=== PATIENT | female | born 1960 | race African-American/Black ===

== ENCOUNTER 2016-08-22 11:22 | Day surgery (SDC) | payer MEDICARE, OTHER ==
[~2016-08-22 11:22] MED LIST: Buffered Lidocaine 1% SYR 3ML* 3 ML/SYR SYRINGE INTRADERM ONE; Cyclopentolate 1% OPTH.SOL* 2 ML BTL ONE; Flurbiprofen 0.03% OPTH.SOL* 2.5 ML BTL ONE; Lidocaine 1% MPF* 2 ML VIAL ONE; Neomycin/Polymy/Dex OPHTH.OIN* 3.5 GM ONE; Phenylephrine 2.5% OPTH.SOL* 2 ML BTL ONE; Tetracaine 0.5% OPTH.SOL 4 ML* 1 DROP BTL ONE; Tropicamide 1% OPTH.SOL* BTL ONE
[2016-08-22] MEDS ORDERED: Propofol* 10 MG/ML 20 ML BTL IV PUSH ONE (13:22)
[2016-08-22] MEDS ORDERED: Lidocaine 2% PF * 5 ML VIAL ONE (13:22)
[2016-08-22 14:17] VITALS: BP 159/77
--- NOTE | 2016-08-23 03:49 | OP ---
DATE OF OPERATION: 08/22/16 [facility]MER[facility] DATE OF : 56 SURGEON: Dr. Walker Anthony. PROBLEM MANAGER: None. ANESTHESIOLOGIST: Bahman Pratt DO ANESTHESIA: Topical with intravenous sedation. PRE-OP DIAGNOSIS: Cataract, left eye. POST-OP DIAGNOSIS: Cataract, left eye. OPERATIVE PROCEDURE: Phacoemulsification and cataract extraction with posterior chamber intraocular lens implant, left eye. COMPLICATIONS: None. BLOOD LOSS: None. DESCRIPTION OF PROCEDURE: The patient was brought to the operating room and received a small amount of intravenous sedation. A drop of Tetracaine was placed in her left eye. She was prepped and draped in the usual sterile fashion for ophthalmic surgery and attention was directed to the left eye where a speculum was placed. A paracentesis was created at the 5 o'clock position and 0.1 cc of 1 percent preservative-free Lidocaine was injected into the anterior chamber followed by DisCoVisc. The eye was digitally stabilized while a 2.75 mm keratome was used to create a triplanar clear corneal incision at the 3 o'clock position. A continuous curvilinear capsulorrhexis was created with a cystotome and Utrata forceps. BSS on a cannula was used to hydrodissect the lens from the capsule. Phacoemulsification was performed in a divide-and- conquer technique to create four fragments which were removed. Residual cortical material was removed with irrigation and aspiration. DisCoVisc was used to inflate the capsular bag and an SN60AT 26.0 diopter lens was folded and inserted into the capsular bag. DisCoVisc was removed using irrigation and aspiration. BSS on a cannula was used to hydrate the corneal stroma and seal the wound. At the end of the case the pupil was round and the lens was centered. The eye was of normal pressure and the wound was water tight. The speculum was removed and topical Maxitrol ointment was placed on the surface of the eye. The eye was closed, patched and shielded and the patient was sent to the recovery room in stable condition with post operative instructions and follow-up appointment given. [id number]/CPS #: [id number] MTDD
== END 2016-08-22 14:23 | disposition home or self-care (01) ==
LOC: OREAST 11:22
PROVIDERS: ATTEND Ophthalmology
DX: H25.12 Age-related nuclear cataract, left eye (principal); F17.210 Nicotine dependence, cigarettes, uncomplicated; E03.9 Hypothyroidism, unspecified
CPT/HCPCS: A9270-GY; J2704; V2632

== ENCOUNTER 2017-01-16 06:44 | Day surgery (SDC) | payer MEDICARE, OTHER ==
[~2017-01-16 06:44] MED LIST changes: +Acetaminophen TAB* 325 MG PO PRN; +Buffered Lidocaine 0.9% SYRIN* 5 ML/SYR SYRINGE INTRADERM ONE; -Buffered Lidocaine 1% SYR 3ML* 3 ML/SYR SYRINGE INTRADERM ONE; -Cyclopentolate 1% OPTH.SOL* 2 ML BTL ONE; -Flurbiprofen 0.03% OPTH.SOL* 2.5 ML BTL ONE; -Lidocaine 1% MPF* 2 ML VIAL ONE; -Neomycin/Polymy/Dex OPHTH.OIN* 3.5 GM ONE; -Phenylephrine 2.5% OPTH.SOL* 2 ML BTL ONE; -Tetracaine 0.5% OPTH.SOL 4 ML* 1 DROP BTL ONE; -Tropicamide 1% OPTH.SOL* BTL ONE
[2017-01-16] MEDS ORDERED: fentaNYL* 50 MCG/ML 2 ML VIAL (100 MCG VIAL) ONE (07:42)
[2017-01-16] MEDS ORDERED: Midazolam* 1 MG/ML 2 ML VIAL (2 MG) ONE ×2 (07:42→07:54)
[2017-01-16 08:18] VITALS: BP 109/64
--- NOTE | 2017-01-16 17:10 | OP ---
DATE OF OPERATION: 01/16/17 [facility] DATE OF : 56 SURGEON: Dr. Walker Anthony. STEEL GRINDER: None. ANESTHESIA: Topical with intravenous sedation. PRE-OP DIAGNOSIS: Cataract, right eye. POST-OP DIAGNOSIS: Cataract, right eye. OPERATIVE PROCEDURE: Phacoemulsification and cataract extraction with posterior chamber intraocular lens implant, right eye. COMPLICATIONS: None. BLOOD LOSS: None. DESCRIPTION OF PROCEDURE: The patient was brought to the operating room and received a small amount of intra-venous sedation. A drop of Tetracaine was placed in her right eye. She was prepped and draped in the usual sterile fashion for ophthalmic surgery and attention was directed to the right eye where a speculum was placed. A paracentesis was created at the 11 o'clock position and 0.1 cc of 1 percent preservative-free Lidocaine was injected into the anterior chamber followed by DisCoVisc. The eye was digitally stabilized while a 2.75 mm keratome was used to create a triplanar clear corneal incision at the 9 o'clock position. A continuous curvilinear capsulorrhexis was created with a cystotome and Utrata forceps. BSS on a cannula was used to hydrodissect the lens from the capsule. Phacoemulsification was performed in a divide-and- conquer technique to create four fragments which were removed. Residual cortical material was removed with irrigation and aspiration. DisCoVisc was used to inflate the capsular bag and an [id number] 25.0 diopter lens was folded and inserted into the capsular bag. DisCoVisc was removed using irrigation and aspiration. BSS on a cannula was used to hydrate the corneal stroma and seal the wound. At the end of the case the pupil was round and the lens was centered. The eye was of normal pressure and the wound was water tight. The speculum was removed and topical Maxitrol ointment was placed on the surface of the eye. The eye was closed, patched and shielded and the patient was sent to the recovery room in stable condition with post operative instructions and follow-up appointment given. [id number]/CPS #: [id number] ZEINAB
== END 2017-01-16 08:45 | disposition home or self-care (01) ==
LOC: OREAST 06:44
PROVIDERS: ATTEND Ophthalmology
DX: H25.11 Age-related nuclear cataract, right eye (principal); Z72.0 Tobacco use; D51.0 Vitamin B12 deficiency anemia due to intrinsic factor deficiency; R60.0 Localized edema
CPT/HCPCS: J2250; J3010; V2632

== ENCOUNTER 2017-02-12 13:26 | Observation (INO) | payer MEDICARE, OTHER ==
[2017-02-12] MEDS ORDERED: Ondansetron INJ* 2 MG/ML VIAL IV ONE (13:51)
[2017-02-12] MEDS ORDERED: NS 0.9% 1000 ML* 1,000 ML IV ONE (13:51)
--- NOTE | 2017-02-12 14:16 | RAD ---
INDICATION: Weakness. COMPARISON: Comparison is made with prior chest x-ray study from September 14, 2009. TECHNIQUE: A portable view of the chest was obtained. FINDINGS: Cardiac and mediastinal contours appear to be within normal limits. The lungs are underinflated. There are minimal infiltrates at both lung bases most consistent with subsegmental atelectasis. The lungs are otherwise clear. No pleural effusion is seen. IMPRESSION: MILD BIBASILAR SUBSEGMENTAL ATELECTASIS.
[2017-02-12 14:22] LABS: Hematocrit 38 % (35-47); Hemoglobin 12.7 g/dl (12.0-16.0); Mean Corpuscular HGB Conc 34 g/dl (31-36); Mean Corpuscular Hemoglobin 32 pg (27-31); Mean Corpuscular Volume 94 fL (80-97); Mean Platelet Volume 7 um3 (7.4-10.4); Red Blood Count 3.99 10^6/ul (4.0-5.4); Red Cell Distribution Width 15 % (10.5-15)
[2017-02-12 14:38] LABS: ALT 9 U/L (7-52); AST 17 U/L (13-39); Alkaline Phosphatase 83 U/L (34-104); Anion Gap 5 mmol/L (2-11); Blood Urea Nitrogen 10 mg/dL (6-24); CO2 Carbon Dioxide 24 mmol/L (22-32); Calcium 9.1 mg/dL (8.6-10.3); Chloride 104 mmol/L (101-111); EGFR African American 90.8 (>60); EGFR Non-African American 70.6 (>60); Globulin 2.9 g/dL (2-4); Glucose 139 mg/dL (70-100); Magnesium 1.8 mg/dL (1.9-2.7); Potassium 3.3 mmol/L (3.5-5.0); Sodium 133 mmol/L (133-145); Total Protein 6.9 g/dL (6.4-8.9)
--- NOTE | 2017-02-12 15:02 | RAD ---
HISTORY: Weakness, fall COMPARISONS: September 14, 2009 TECHNIQUE: Multiple contiguous axial CT scans were obtained of the head without intravenous contrast. FINDINGS: HEMORRHAGE/INFARCT: There is no hemorrhage or acute infarct. MASSES/SHIFT: There is no mass or shift. EXTRA-AXIAL SPACES: There are no extra-axial fluid collections. SULCI AND VENTRICLES: The sulci and ventricles are normal in size and position for the patient's stated age. CEREBRUM: There are no focal parenchymal abnormalities. BRAINSTEM: There are no focal parenchymal abnormalities. CEREBELLUM: There are no focal parenchymal abnormalities. VESSELS: The vessels are grossly normal. PARANASAL SINUSES: The paranasal sinuses are clear. ORBITS: The orbits are unremarkable. BONES AND SOFT TISSUE: No bone or soft tissue abnormalities are noted. OTHER: None IMPRESSION: NO ACUTE INTRACRANIAL PATHOLOGY.
[2017-02-12 15:48] LABS: Acetaminophen < 15 mcg/mL; Alcohol < 10 mg/dL (<10); Salicylate < 2.50 mg/dL (<30)
--- NOTE | 2017-02-12 16:24 | ED ---
Cheryl Panchal Edward, scribed for Eloy Munoz MD on 02/12/17 at 1351 . Syncope/Near Syncope - HPI Summary HPI Summary: 56 y/o female BIBA s/p sudden onset near syncopal episode earlier today at around 13:30. Pt felt dizzy and weak and fell to the floor at her girlfriend's house. Pt denies any injury during fall. Pt denies syncope. Associated sx: N/V in the ambulance. Denies diarrhea, CP, VICTOR, ABD pain, diarrhea and melena. - History Of Current Complaint Chief Complaint: EDWeakness Time Seen by Provider: 02/12/17 13:44 Hx Obtained From: Patient Onset/Duration: Sudden Onset Timing: Frequency Of Episodes - 1 Context: Witnessed Associated Head Trauma: No Associated Signs And Symptoms: Dizzy, Vomiting, Weakness - Allergies/Home Medications Allergies/Adverse Reactions: Allergies Allergy/AdvReac Type Severity Reaction Status Date / Time Cyclobenzaprine Allergy GI Upset Verified 01/16/17 07:10 [From Flexeril] Modafinil AdvReac Intermediate GI Upset Verified 01/16/17 07:10 Venlafaxine [From Effexor] AdvReac Intermediate GI Upset Verified 01/16/17 07:10 Methylphenidate AdvReac Unknown Hallucinati Verified 01/16/17 07:10 [From Concerta] ons PMH/Surg Hx/FS Hx/Imm Hx Previously Healthy: No Endocrine/Hematology History: Reports: Hx Thyroid Disease - hypothyroid, controlled with medication, Hx Anemia - pernicious anemia- ON SUPPLEMENT FOR Denies: Hx Diabetes Cardiovascular History: Reports: Hx Hypercholesterolemia, Hx Hypertension - controlled with medication, Hx Valvular Heart Disease - ? LEAKY VALVE PT. 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 LEFT hip replacement 2004, REVISION IN 2008, HARDWARE REMOVED AND NOT REPLACED D/T MRSA INFECTION. CHOLECYSTECTOMY 2007. x4 1977,1981,1986,1987. left cataract, [place] , [facility] [place] 1987 Hx Anesthesia Reactions: No Infectious Disease History: Yes Infectious Disease History: Denies: Hx Hepatitis, Hx Human Immunodeficiency Virus (HIV), Traveled Outside the [place] in Last 30 Days - Family History Known Family History: Positive: Cardiac Disease, Hypertension - Social History Alcohol Use: None Substance Use Type: Reports: None, Prescribed Substance Use Comment - Amount & Last Used: Suboxen Smoking Status (MU): Current Every Day Smoker Amount Used/How Often: 4-5 cigs per day, PT HAS SMOKED FOR APPROX 40 YRS, 1/2 PPD AT MOST Have You Smoked in the Last Year: Yes Review of Systems Constitutional: Negative Eyes: Negative ENT: Negative Cardiovascular: Negative Respiratory: Negative Positive: Vomiting, Nausea Genitourinary: Negative Musculoskeletal: Negative Skin: Negative Neurological: Other - Dizzy, near syncope Positive: Weakness. Negative: Syncope Psychological: Normal All Other Systems Reviewed And Are Negative: Yes Physical Exam Triage Information Reviewed: Yes Vital Signs On Initial Exam: Initial Vitals Temp Pulse Resp BP Pulse Ox 95.7 F 90 20 159/94 97 02/12/17 13:35 02/12/17 13:35 02/12/17 13:35 02/12/17 13:35 02/12/17 13:35 Vital Signs Reviewed: Yes Appearance: Positive: No Pain Distress - a little somulent Skin: Positive: Skin Color Reflects Adequate Perfusion Head/Face: Positive: Normal Head/Face Inspection Eyes: Positive: EOMI, Other: - her pupils are on the smaller size but reactive bilaterally. ENT: Positive: Normal ENT inspection, Pharynx normal Neck: Positive: Nontender Respiratory/Lung Sounds: Positive: Clear to Auscultation, Breath Sounds Present Cardiovascular: Positive: RRR. Negative: Murmur Abdomen Description: Positive: Nontender Musculoskeletal: Positive: Normal, Strength/ROM Intact Neurological: Positive: Sensory/Motor Intact, Alert, Oriented to Person Place, Time, CN Intact II-III - Mitra Coma Scale Best Eye Response: 4 - Spontaneous Best Motor Response: 6 - Obeys Commands Best Verbal Response: 5 - Oriented Diagnostics - Vital Signs Vital Signs Temp Pulse Resp BP Pulse Ox 02/12/17 13:35 95.7 F 90 20 159/94 97 - Laboratory Lab Results: Lab Results 02/12/17 02/12/17 Range/Units 14:12 14:12 WBC 5.0 (3.5-10.8) 10^3/ul RBC 3.99 L (4.0-5.4) 10^6/ul Hgb 12.7 (12.0-16.0) g/dl Hct 38 (35-47) % MCV 94 (80-97) fL MCH 32 H (27-31) pg MCHC 34 (31-36) g/dl RDW 15 (10.5-15) % Plt Count 275 (150-450) 10^3/ul MPV 7 L (7.4-10.4) um3 Neut % (Auto) 61.7 (38-83) % Lymph % (Auto) 26.2 (25-47) % Glynn % (Auto) 6.3 (1-9) % Eos % (Auto) 4.8 (0-6) % Baso % (Auto) 1.0 (0-2) % Absolute Neuts (auto) 3.1 (1.5-7.7) 10^3/ul Absolute Lymphs (auto) 1.3 (1.0-4.8) 10^3/ul Absolute Monos (auto) 0.3 (0-0.8) 10^3/ul Absolute Eos (auto) 0.2 (0-0.6) 10^3/ul Absolute Basos (auto) 0 (0-0.2) 10^3/ul Absolute Nucleated RBC 0 10^3/ul Nucleated RBC % 0.1 Lactic Acid 1.5 (0.5-2.0) mmol/L Result Diagrams: 02/12/17 14:12 02/12/17 14:12 Lab Statement: Any lab studies that have been ordered have been reviewed, and results considered in the medical decision making process. - Radiology CXR Xray Interpretation: Positive (See Comments) - MILD BIBASILAR SUBSEGMENTAL ATELECTASIS. Radiology Interpretation Completed By: Radiologist - CT BRAIN CT CT Interpretation: No Acute Changes - NO ACUTE INTRACRANIAL PATHOLOGY CT Interpretation Completed By: Radiologist - EKG 1 EKG Interpretation: 14:58 - SINUS BRADYCARDIA @ 54 BPM. NO STEMI Re-Evaluation - Re-Evaluation 1 Re-Evaluation Time: 15:17 Comment: Pt's daughter states she is at her baseline. Pt reports not eating or drinking since last night. Course/Dx Course Of Treatment: 56 yr old female with near syncope today, weakness, and dizziness. She feels somewhat better after hydration . She reports an episode of feeling off balance with weakness, and falling two days ago in which she felt like she could pass out. MR and MRA studies of head and neck ordered. I have discussed with the hospitalist for OBV and further work up for her recurrent episodes the past couple of days. - Diagnoses Provider Diagnoses: Hypertension, Dizziness, Falls - Physician Notifications Discussed Care of Patient With: Li Rehman Time Discussed With Above Provider: 16:00 Discharge - Discharge Plan Condition: Good Disposition: ADMITTED TO [facility] The documentation as recorded by the Cheryl espinoza Edward accurately reflects the service I personally performed and the decisions made by me, Eloy Munoz MD.
[2017-02-12] MEDS ORDERED: Topiramate TAB(*) 25 MG PO PRN (17:11)
[2017-02-12] MEDS ORDERED: Zolpidem TAB* 5 MG PO PRN (17:11)
[2017-02-12] MEDS ORDERED: Meclizine TAB* 12.5 MG PO PRN (17:11)
[2017-02-12] MEDS ORDERED: Acetaminophen TAB* 325 MG PO PRN (18:04)
[2017-02-12] MEDS ORDERED: Magnesium Sulfate 2 GM IV* 2 GM/50 ML BAG IVPB ONE (18:04)
--- NOTE | 2017-02-12 19:09 | RAD ---
INDICATION: Right lower extremity swelling. COMPARISON: Comparison is made with a prior lower extremity venous duplex study from August 10, 2009. TECHNIQUE: Multiple real-time, color flow and Doppler tracings of the right lower extremity were obtained. FINDINGS: The common femoral, femoral, profunda femoral and popliteal veins all demonstrate normal compressibility, augmentation with compression and phasic response with respiration. The posterior tibial and peroneal veins demonstrate normal compressibility and augmentation with compression. IMPRESSION: NO EVIDENCE FOR DEEP VENOUS THROMBOSIS.
--- NOTE | 2017-02-12 20:05 | HP ---
H&P (Free Text) History and Physical: History and Physical: Date of admission: 02/12/2017 PCP: Dr. Gustabo Zacarias Attending Physician: Dr. Altaf Melo CC: Dizziness with Fall X 3 days HPI: Ms. 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 Patient states she was unable to get up after the most recent fall due to persistent dizziness and called EMS. Patient describes the dizziness as the world swaying and lightheadedness, but denies vertigo, changes in vision, LOC, nausea, vomiting, or head trauma with either fall. Patient denies any history of falls or dizziness. Patient states that she doesnt eat very much due to early satiety and a globus pharyngeus. Patient states she drinks 3 medium sized bottles of iced tea daily with occasional other fluids and no water, but denies any recent changes in intake. Patient states that she has had increased swelling in her right leg with pain behind her right knee without corresponding swelling in the left leg ever since she flew back from [place] 5 weeks ago. Patient denies erythema or warmth in either lower extremity and denies shortness of breath, chest pain, nocturia, and personal or family history of blood clots. Patient complains of eye strain without changes in vision including scotomata and blurring. Patient states she has had a pounding frontal headache since she fell that is consistent with her headaches that were previously diagnosed as migraines. Patient states she was in rehab 3 months ago due to her use of crack cocaine and that she has not used any illicit drugs for 90 days after 30 years of intermittent use. Patient states she felt her heart pounding in her chest when she fell, but states that is happened mostly after she had already fallen. Patient also complains of palpitations at rest, but denies any lightheadedness with these episodes. Patient denies any recent illnesses or new exposures. Patient states that her Narcolepsy has been getting worse and that she loses consciousness spontaneously usually daily. Patient recently stopped taking Topimirate and Remeron because she thought they werent working. Additional PMH: Bipolar Disorder, GERD, Hypothyroidism, Insomnia Past Surgical History: Gastric Bypass in 2002, Hip replacement in 2004 with revision in 2008 and several revisions due to device infection, Cholecystectomy in 2003, Cataract surgery in 2017 Home Medications include: Ambien 5mg PO PRN for sleep, Synthroid 75mg PO Daily, Lamicatal 400mg PO Daily, Nexium 40mg PO BID, Suboxone 8/2mg PO BID, Losartan 50mg PO Daily, FeSO4 325mg PO BID, Bactrim 800/160 PO Daily, Cyanocobalamin 1, 000mcg IM Monthly. Allergies: Cyclobenzaprine, modafinil, venafaxine, and methylphenidate Family History: Mother with a history CAD and DM. 2 daughters with a history of lupus. She denies any family history of cancer. Social History: Patient smokes 4-5 cigarettes a day. Patient denies any current or previous alcohol abuse and denies current illicit drug abuse. Patient lives alone and is a with 4 adult children and several grandchildren. ROS: A 14 point review of systems was negative except as stated above. PE: VS: Tmax: 97.6, HR:70, RR:20, SpO2:98 on RA, BP:149/79 General Survey: Patient is a 61yo male who appears stated age and is lying comfortably on the stretcher in the ED. HEENT: Normocephalic/atramatic Eyes: Sclera Anicteric, PERRL, EOMI without Nystagmus, Ears: Irritation noted in right auditory canal, Tympanic membranes normal without effusion. Cardiovascular: RRR, Grade 2/6 murmur heard best at the left sternal border in the second intercostal space. Radial, DP, PT pulses 2+ B/L. Right leg ( especially the calf)significantly greater in circumference than the left without edema, erythema or tenderness. Respiratory: Good air exchange B/L, no adventitious lung sounds, Trachea midline. Abdominal: Obese, NT/ND. BS normoactive in all 4 quadrants. No hepatosplenomegaly. Neuro: A/Ox3, CN II-XII intact. Proximal and distal muscle groups 5/5 strength bilaterally. Skin: Intact, no rash. Diagnostic studies/laboratory data: Na+: 133, Cl- 103, CO2: 24, BUN: 10, Cret: .83, K+: 3.3, Mg++:1.8, Glucose 134 WBC: 5.0, H/H: 12.7/38, Platelets: 275 Troponin: 0.00 EKG: Sinus Bradycardia, No ST elevation or other abnormality noted 1. CXR: Bibasilar Atelectasis, no other abnormality 2. CT Brain: No Intracranial Abnormality Impression: Ms. Hernandez is a 56 yo F with PMH significant for Narcolepsy, Bipolar Disorder, GERD, Hypothyroidism, Insomnia who presented to the hospital with complaints of a near-syncopal event. She will be admitted as an observation. Assessment/Plan: 1. Presyncope: Admit to Telemetry. Orthostatic Vital Signs now and in morning after IV fluids. Echocardiogram to assess murmur. MRA of Neck and Head and MRI of brain to assess for posterior CVA. Will recheck BMP in morning 2. Right Leg Swelling: Venous Doppler to R/O DVT 3. Moderate Hypomagnesemia: 2g Magnesium sulfate PO once, Will recheck tomorrow 4. Hypertension: Continue Home Losartan, Hold Hydrochlorothiazide 5. Moderate Hypokalemia: Pt will receive 80meq Potassium , Will recheck tomorrow 6. Insomnia: Continue Home Ambien and Remeron PRN 7. History of MRSA Endocarditis: Continue Home Bactrim 8. GERD: controlled on Medication: Continue Home Nexium 9. Bipolar Disorder: Continue Home Lamictal 10. Cephalalgia: Tylenol 650mg PO Q4H as needed for pain, Restart home Topimirate for migraine prophylaxis 11. FEN: Regular Unrestricted Diet 12. Code Status: Full Code 13. DVT Prophylaxis: Moderate risk: 5,000U Unfractionated Heparin Subcutaneous Q8HR 14. Disposition. Observation for presyncope. TIME SPENT: Time for this admission was approximately 60 minutes and greater than half of the was spent with the patient discussing mediations, past medical history and events leading up to her arrival today. The case was reviewed with the attending Dr. Melo who agrees with the plan of care.
[2017-02-12] MEDS ORDERED: Mirtazapine TAB* 15 MG PO SCH (21:00)
--- NOTE | 2017-02-12 21:14 | RAD ---
INDICATION: Headache, off balance. COMPARISON: Comparison is made with a prior MRI of the brain from September 14, [address] of the brain from February 12, 2017. TECHNIQUE: Sagittal T1, axial T1, T2, susceptibility, FLAIR and diffusion weighted images were obtained. FINDINGS: The ventricles, cisterns and sulci appear to be within normal limits. No significant focal abnormality or mass effect is seen. The cerebellar tonsils are low in position and slightly pointed suggestive of a Chiari I malformation. No areas of restricted diffusion are present. There is no evidence for infarct or hemorrhage. The visualized portion of the paranasal sinuses and mastoid air cells appear clear. IMPRESSION: 1. NO EVIDENCE FOR ACUTE FINDING. 2. 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
[2017-02-12] MEDS: Omeprazole CAP* 20 MG PO SCH (21:31)
[2017-02-12] MEDS: Ferrous Sulfate TAB* 325 MG PO SCH (21:32)
[2017-02-12] MEDS: Heparin VIAL(*) 5000 UNITS/ML VIAL (FIVE THOUSAND) SUBCUT SCH (21:34)
[2017-02-12] MEDS: NS 0.9% 1000 ML* 1,000 ML IV SCH (21:35)
[2017-02-12] MEDS: Buprenorphine/Naloxone 8-2 MG SL TAB* 1 TAB SL SCH (21:41)
--- NOTE | 2017-02-12 21:56 | RAD ---
INDICATION: Vertigo headache. COMPARISON: There are no prior studies available for comparison. TECHNIQUE: A 2-D [id number] magnetic resonance angiogram of the neck was performed. Images were reconstructed in the maximum intensity projection format. The distal cervical internal carotid artery diameter is used as the denominator for stenosis measurement. FINDINGS: Right carotid: The right common and internal carotid arteries appear patent without gross evidence for hemodynamically significant stenosis. Left carotid: The left common and internal carotid arteries appear patent without evidence for gross hemodynamically significant stenosis. Vertebrals: The vertebral arteries appear patent bilaterally. IMPRESSION: LIMITED NONCONTRAST STUDY, NO EVIDENCE FOR HEMODYNAMICALLY SIGNIFICANT CAROTID STENOSIS. CONSIDER FOLLOW-UP CAROTID DUPLEX ULTRASOUND STUDY. CPT II Codes: 3100F
[2017-02-12] MEDS: Potassium Chlor TAB* 20 MEQ TAB.ER PO SCH ×2 (22:01→23:03)
[2017-02-13] MEDS: Potassium Chlor TAB* 20 MEQ TAB.ER PO SCH (04:33)
[2017-02-13 05:35] LABS: BUN/Creatinine Ratio 11.8 (8-20); Calcium 7.8 mg/dL (8.6-10.3); EGFR African American 114.3 (>60); EGFR Non-African American 88.9 (>60); Magnesium 2.3 mg/dL (1.9-2.7); Potassium 4.6 mmol/L (3.5-5.0)
[2017-02-13] MEDS ORDERED: Levothyroxine TAB* 75 MCG TAB PO SCH (06:00)
[2017-02-13] MEDS: Heparin VIAL(*) 5000 UNITS/ML VIAL (FIVE THOUSAND) SUBCUT SCH ×2 (06:00→16:34)
--- NOTE | 2017-02-13 07:47 | RAD ---
HISTORY: Headache, dizziness, nausea COMPARISONS: MRI dated February 12, 2017 TECHNIQUE: 3-D axial [id number] MR angiography was performed of the head to include the [place] of [place]. Multiple 3-D maximum intensity projection reconstructions are also submitted for review. FINDINGS: The study is limited by patient motion artifact. RIGHT VERTEBRAL ARTERY: The distal right vertebral artery is unremarkable, without stenosis. LEFT VERTEBRAL ARTERY: The distal left vertebral artery is unremarkable, without stenosis. DOMINANCE: The vertebral arteries are codominant. DISTAL RIGHT CERVICAL INTERNAL CAROTID ARTERY: The distal right cervical internal carotid artery is unremarkable. DISTAL LEFT CERVICAL INTERNAL CAROTID ARTERY: The distal left cervical internal carotid artery is unremarkable. INTRACRANIAL CIRCULATION: There is no aneurysm, vascular malformation, occlusion, or stenosis of the visualized intracranial circulation. The anterior communicating artery complex is clear. A left posterior communicating artery is identified. OTHER FINDINGS: None IMPRESSION: LIMITED STUDY. NO ANEURYSM, VASCULAR MALFORMATION, OCCLUSION, OR STENOSIS OF THE VISUALIZED INTRACRANIAL CIRCULATION.
[2017-02-13] MEDS ORDERED: Sulfamethox/Trimethoprim DS 800/160* TAB PO SCH (09:00)
[2017-02-13] MEDS ORDERED: Losartan TAB* 25 MG PO SCH (09:00)
[2017-02-13] MEDS ORDERED: lamoTRIgine TAB(*) 100 MG PO SCH (09:00)
[2017-02-13] MEDS ORDERED: Docusate CAP* 100 MG PO SCH (09:00)
[2017-02-13] MEDS: Buprenorphine/Naloxone 8-2 MG SL TAB* 1 TAB SL SCH (09:11)
[2017-02-13] MEDS: Ferrous Sulfate TAB* 325 MG PO SCH (09:11)
[2017-02-13] MEDS: Omeprazole CAP* 20 MG PO SCH (09:11)
[2017-02-13] MEDS: NS 0.9% 1000 ML* 1,000 ML IV SCH (10:19)
--- NOTE | 2017-02-13 11:52 | ECHO ---
Patient: ROSALIO MENESES [facility] Rec#: [id number] : 1960 Date: 02/13/2017 Age: 56y Height: 167.64 cm / 66.0 in Weight: 87.54 kg / 192.9 lbs Sex: F BSA: 1.97 Room#: 452 Admit Date#: 02/12/2017 Type: Inpatient Referring: Fallon Medina NP Reading: Jason Sharp MD [employer] Shovel Operator: Fallon Freire RDCS CC: Gustabo Zacarias MD Transthoracic Echocardiogram Indication: New murmur BP: 116/60 HR: 54 Rhythm: Bradycardia Findings History: S/P hip replacement with MRSA sepsis, HTN, gastric bypass 2005, narcolepsy, substance abuse. Technical Comments: The study quality is good. Completed at 0910. Left Ventricle: The left ventricular chamber size is normal. Global left ventricular wall motion and contractility are within normal limits. There is normal left ventricular systolic function. The estimated ejection fraction is 55-60%. Normal left ventricular diastolic filling is observed. Left Atrium: The left atrium is mildly dilated. Right Ventricle: The right ventricular cavity size is normal. The right ventricular global systolic function is normal. Right Atrium: The right atrium is mildly dilated. Aortic Valve: The aortic valve is trileaflet. Mild aortic leaflet calcification is visualized. There is a trace of aortic regurgitation. There is borderline aortic stenosis present. Mitral Valve: The mitral valve leaflets are mildly thickened. There is trace to mild mitral regurgitation. There is no evidence of mitral stenosis. Tricuspid Valve: The tricuspid valve leaflets are normal. There is mild tricuspid regurgitation. The right ventricular systolic pressure is estimated at 23 mmHg. No pulmonary hypertension is noted. There is no tricuspid stenosis. Pulmonic Valve: The pulmonic valve appears normal. There is a trace pulmonic regurgitation. There is no pulmonic stenosis. Pericardium: There is no significant pericardial effusion. A pericardial fat pad is visualized. Aorta: There is no dilatation of the ascending aorta. There is no dilatation of the aortic arch. There is no dilation of the aortic root. Pulmonary Artery: The main pulmonary artery appears normal. Venous: The inferior vena cava appears normal in size. There is a greater than 50% respiratory change in the inferior vena cava dimension. Conclusions Global left ventricular wall motion and contractility are within normal limits. The estimated ejection fraction is 55-60%. Normal left ventricular diastolic filling is observed. No significant valvular disease: There is a trace of aortic regurgitation. There is borderline aortic stenosis present. There is trace to mild mitral regurgitation. There is mild tricuspid regurgitation. No pulmonary hypertension is noted. There is a trace pulmonic regurgitation. No reports of prior studies available for comparison. Measurements Name Value Normal Range RVIDd (AP) 2D 3 cm (0.9 - 2.6) RVDdMajor (2D) 4.3 cm (2.2 - 4.4) RAd ISD 4CH 5.7 cm (3.4 - 4.9) RA (A4C)W 4.6 cm (2.9 - 4.6) IVSd (2D) 0.9 cm (0.6 - 1) LVPWd (2D) 0.8 cm (0.6 - 1) LVIDd (2D) 4.2 cm (3.6 - 5.4) LVIDs (2D) 3 cm - LV FS (2D) 28 % (25 - 45) Aortic Annulus 1.8 cm (1.4 - 2.6) Ao root diameter (2D) 3.1 cm (2.1 - 3.5) Ascending Ao 2.5 cm (2.1 - 3.4) Aortic arch 2.3 cm (1.8 - 3.4) LA dimension (AP) 2D 3 cm (2.3 - 3.8) LAd ISD 4CH 5.9 cm (2.9 - 5.3) LA ISD 4CH W 4 cm (2.5 - 4.5) Name Value Normal Range LA ESV SP 4CH (A/L) 57 ml - LA ESV SP 2CH (A/L) 74 ml - LA ESV BP (A/L) 65 ml - LA ESV BP (A/L) index 33.48 ml/m2 - LA ESV SP 4CH (MOD) 52 ml - LA ESV SP 2CH (MOD) 70 ml - Name Value Normal Range MV E-wave Vmax 0.81 m/sec - MV deceleration time 246 msec - MV A-wave Vmax 0.55 m/sec - MV E:A ratio 1.47 ratio - LV septal e' Vmax 0.13 m/sec - LV lateral e' Vmax 0.11 m/sec - LV E:e' septal ratio 6.23 ratio - LV E:e' lateral ratio 7.36 ratio - Name Value Normal Range AV Vmax 2.05 m/sec - AV VTI 42.03 cm - AV peak gradient 16.86 mmHg - AV mean gradient 9.01 mmHg - LVOT diameter 2 cm - LVOT Vmax 1.32 m/sec - LVOT VTI 27.88 cm - LVOT peak gradient 7.03 mmHg - LVOT mean gradient 3.67 mmHg - THOR (continuity Vmax) 2.02 cm2 - THOR (continuity VTI) 2.08 cm2 - MARELY Vmax 1.07 m/sec - Name Value Normal Range TR Vmax 2.26 m/sec - TR peak gradient 20 mmHg - RAP 3 mmHg - RVSP 23 mmHg - IVC diameter 1.6 cm - Name Value Normal Range PV Vmax 1.04 m/sec - PV peak gradient 4.37 mmHg -
[2017-02-13 15:50] VITALS: BP 104/75
--- NOTE | 2017-02-14 03:29 | DS ---
CC: Dr. Zacarias; Dr. Dickey * DISCHARGE SUMMARY: DATE OF ADMISSION: 02/12/17 DATE OF DISCHARGE: 02/13/17 HISTORY OF PRESENT ILLNESS: This 56-year-old woman presented with dizziness and falling down. For the past 3 days, she had dizziness with falls. She was unable to get up and call EMS. There were no other related symptoms. She reported poor oral intake due to globus pharyngeus. She also reported swelling in the right leg. She had recently returned from a trip from [place] 5 weeks ago by air. I note she had been in rehab 3 months ago for use of crack cocaine and said she had been clean since then. She had some palpitations. The patient was monitored on telemetry. No significant arrhythmias were found. Orthostatic vital signs were really unremarkable. She was evaluated with a transthoracic echocardiogram which is unremarkable. Venous Doppler showed no evidence of clot. She had a neck MRI, head MRI, brain MRI, and brain CT scan, all of which were unrevealing. I note her potassium was little bit low at 3.3, after replenishment it was 4.6. Her sodium was also improved from 133 to 137, although I note both values are within the normal range. Creatinine was 0.83 and BUN was 10 on admission. I am not sure that the hypokalemia was related to her symptoms, it seems unlikely. Possibly her symptoms are related to the multiple medications she takes, although she feels they are all essential medications. FINAL DIAGNOSES: 1. Subjective dizziness without objective signs. 2. Hypothyroidism. 3. Bipolar disorder. 4. History of polysubstance abuse. 5. History of endocarditis. DISCHARGE MEDICATIONS: 1. Zolpidem 5 to 10 mg h.s. as prescribed. 2. Levothyroxine 75 mcg daily. 3. Vitamin B12 1000 mcg IM q. month. 4. Sulfamethoxazole/trimethoprim 1 tablet daily. 5. Ferrous sulfate 325 mg b.i.d. 6. Topiramate 50 mg every 6 hours p.r.n. migraine. 7. Esomeprazole 40 mg b.i.d. 8. Mirtazapine 45 mg h.s. 9. Meclizine 25 mg t.i.d. p.r.n. 10. Lamotrigine 400 mg daily. 11. Losartan 50 mg daily. 12. Hydrochlorothiazide 12.5 mg daily. 13. Docusate 100 mg daily. 14. Suboxone 8/2 one sublingual twice daily. [id number]/[facility] #: [id number] MTDD
[2017-02-18 14:21] LABS: Codeine, Ur Not Detected ng/mL (Cutoff: 25); Fentanyl, Ur Not Detected ng/mL (Cutoff: 2); Hydrocodone, Ur Not Detected ng/mL (Cutoff: 25); Hydromorphone, Ur Not Detected ng/mL (Cutoff: 25); Hydromorphone3betaglucuronide Not Detected; Morphine, Ur Not Detected ng/mL (Cutoff: 25); Norfentanyl, Ur Not Detected ng/mL (Cutoff: 2); Norhydrocodone, Ur Not Detected ng/mL (Cutoff: 25); Noroxycodone, Ur Not Detected ng/mL (Cutoff: 25); Oxycodone, Ur Not Detected ng/mL (Cutoff: 25); Oxymorphone, Ur Not Detected ng/mL (Cutoff: 25); Specific Gravity 1.018; Tramadol, Ur Present ng/mL (Cutoff: 25); Urine Tetrahydrocannabinol Negative ng/mL (Cutoff: 50); pH 6.5
[2017-02-18 14:22] LABS: UR PCP Confirm Negative ng/mL (Cutoff: 10); UR PCP Interpretation Negative.
[2017-02-19 15:18] LABS: Ur Benzoylecgonine Confirm 167 ng/mL (Cutoff: 50); Urine Cocaine Confirm (GC/MS) Negative ng/mL (Cutoff: 50); Urine Cocaine Interpretation Positive.
== END 2017-02-13 17:00 | disposition home or self-care (01) ==
LOC: ED 13:26 → MEDTELE 16:09
PROVIDERS: ADMIT Internal Medicine; ATTEND Internal Medicine
DX: R42 Dizziness and giddiness (principal); E03.9 Hypothyroidism, unspecified; F31.9 Bipolar disorder, unspecified; F19.10 Other psychoactive substance abuse, uncomplicated; E87.6 Hypokalemia; R00.1 Bradycardia, unspecified; I10 Essential (primary) hypertension; M79.89 Other specified soft tissue disorders; E83.42 Hypomagnesemia; F17.210 Nicotine dependence, cigarettes, uncomplicated; Z79.899 Other long term (current) drug therapy
CPT/HCPCS: 36415; 70450; 70544; 70547; 70551; 71010; 80048; 80053; 80307; 80320; 80329; 80353; 80364; 82140; 83605; 83735; 83992; 84443; 84484; 84702; 85025; 85610; 87641; 93005; 93306; 96361; 96372; 96374; 96375; 99284; A9270-GY; G0378; G0480; J1644; J2405; J3475

== ENCOUNTER 2018-01-14 17:09 | Emergency (ER) | payer MEDICARE, OTHER ==
--- NOTE | 2018-01-14 18:17 | RAD ---
INDICATION: Right forearm injury. COMPARISON: Comparison is made with a prior x-ray study of the right wrist from June 02, 2013. TECHNIQUE: 2 views of the right forearm were obtained. FINDINGS: There is deformity of the distal radius most consistent with an old fracture correlating with the prior x-ray study. No acute fracture is seen. IMPRESSION: NO ACUTE FRACTURE IS SEEN.
--- NOTE | 2018-01-14 18:17 | RAD ---
INDICATION: Right humerus injury. TECHNIQUE: 2 views of the right humerus were obtained. FINDINGS: The bones are in normal alignment. No fracture is seen. IMPRESSION: NO EVIDENCE FOR FRACTURE.
--- NOTE | 2018-01-14 18:21 | RAD ---
INDICATION: Left knee injury. TECHNIQUE: 4 views of the left knee were obtained. FINDINGS: The bones appear osteopenic and are normal alignment. There is a moderate joint effusion present. No fracture is seen. There is an osteochondral lesion of the lateral femoral condyle. There is mild to moderate osteoarthritic change in all 3 compartments. IMPRESSION: 1. NO ACUTE FRACTURE IS SEEN. IF THE PATIENT'S SYMPTOMS PERSIST RECOMMEND FOLLOW-UP IMAGING. 2. JOINT EFFUSION. 3. OSTEOCHONDRAL LESION LATERAL FEMORAL CONDYLE.
--- NOTE | 2018-01-14 18:23 | RAD ---
INDICATION: Right shoulder injury. TECHNIQUE: 4 views of the right shoulder were obtained. FINDINGS: The bones are in normal alignment. No fracture is seen. There is mild/moderate osteoarthritic change in the glenohumeral and acromioclavicular joints. IMPRESSION: NO EVIDENCE OF FRACTURE.
--- NOTE | 2018-01-14 18:25 | RAD ---
INDICATION: Right scapular injury. TECHNIQUE: 2 views of the right scapula were obtained. FINDINGS: The bones are in normal alignment. No fracture is seen. Joint spaces appear maintained. IMPRESSION: NO EVIDENCE FOR FRACTURE, IF THE PATIENT'S SYMPTOMS PERSIST RECOMMEND FOLLOW-UP IMAGING.
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
[2018-01-14 18:53] VITALS: BP 143/87
== END 2018-01-14 18:52 | disposition home or self-care (01) ==
LOC: ED 17:09
DX: M25.562 Pain in left knee (principal); M79.601 Pain in right arm; F17.210 Nicotine dependence, cigarettes, uncomplicated; V89.2XXA Person injured in unspecified motor-vehicle accident, traffic, initial encounter; Y93.9 Activity, unspecified; Y92.9 Unspecified place or not applicable
CPT/HCPCS: 99282

== ENCOUNTER 2021-10-03 10:02 | Observation (INO) ==
[2021-10-03 10:41] LABS: ABS Eosinophils 0.2 10^3/ul (0-0.6); ABS Lymphocytes 0.9 10^3/ul (1.0-4.8); ABS Monocytes 0.3 10^3/ul (0-0.8); Eosinophil % 5.5 %; Hematocrit 40 % (35-47); Hemoglobin 13.3 g/dL (12.0-16.0); Lymphocyte % 26.8 %; Mean Corpuscular HGB Conc 34 g/dL (31-36); Mean Corpuscular Hemoglobin 32 pg (27-31); Mean Corpuscular Volume 95 fL (80-97); Mean Platelet Volume 7.3 fL (7.4-10.4); Nucleated Red Blood Cells % 0.1; Platelet Count 275 10^3/uL (150-450); Red Blood Count 4.17 10^6 /uL (3.70-4.87); Red Cell Distribution Width 14 % (10-15); White Blood Count 3.4 10^3/uL (3.5-10.8)
[2021-10-03 10:51] LABS: INR 1.02 (0.86-1.15)
[2021-10-03 11:42] LABS: Albumin 4.1 g/dL (3.2-5.2); Albumin/Globulin Ratio 1.6 (1-3); Calcium 8.6 mg/dL (8.6-10.3); Globulin 2.5 g/dL (2-4); Total Bilirubin 0.5 mg/dL (0.2-1.0); Total Protein 6.6 g/dL (6.4-8.9); eGFR CKD-EPI 76.9 (>60)
[2021-10-03] MEDS ORDERED: NS 0.9% 1000 ml BAG 1,000 ML IV ONE (11:47)
[2021-10-03 12:34] LABS: Mean Platelet Volume 7.3 fL (7.4-10.4); Platelet Count 268 10^3/uL (150-450)
[2021-10-03] MEDS ORDERED: Ondansetron 4 mg VIAL 2 MG/ML 2 ml VIAL IV PRN (14:17)
[2021-10-03] MEDS ORDERED: Naloxone Nasal Spray 4 MG/0.1 ML NASAL.SPR INTRANASAL PRN (14:37)
[2021-10-03 14:38] LABS: HDL Cholesterol 78.7 mg/dL
[2021-10-03] MEDS: Enoxaparin 40 MG/0.4 ML SYR SUBCUT SCH (15:17)
[2021-10-03] MEDS: Buprenorp/Nalox 8-2 MG FILM SL FILM SCH (20:44)
[2021-10-04 06:57] LABS: ABS Eosinophils 0.2 10^3/ul (0-0.6); ABS Lymphocytes 1.2 10^3/ul (1.0-4.8); ABS Monocytes 0.4 10^3/ul (0-0.8); ABS Neutrophils 2.3 10^3/ul (1.5-7.7); Hematocrit 38 % (35-47); Hemoglobin 12.8 g/dL (12.0-16.0); Mean Corpuscular HGB Conc 34 g/dL (31-36); Mean Corpuscular Hemoglobin 32 pg (27-31); Mean Corpuscular Volume 95 fL (80-97); Mean Platelet Volume 7.5 fL (7.4-10.4); Nucleated Red Blood Cells % 0.1; Platelet Count 248 10^3/uL (150-450); Red Blood Count 3.98 10^6 /uL (3.70-4.87); Red Cell Distribution Width 14 % (10-15); White Blood Count 4.1 10^3/uL (3.5-10.8)
[2021-10-04 07:17] LABS: Potassium 4.1 mmol/L (3.5-5.0)
[2021-10-04 07:18] LABS: Calcium 8.5 mg/dL (8.6-10.3); Magnesium 2.1 mg/dL (1.9-2.7); eGFR CKD-EPI 51.4 (>60)
[2021-10-04] MEDS: Buprenorp/Nalox 8-2 MG FILM SL FILM SCH (08:38)
[2021-10-04] MEDS ORDERED: Nicotine PATCH 14 MG/24 HR PATCH TRANSDERM SCH (09:00)
[2021-10-04] MEDS ORDERED: MAGNESIUM CHLORIDE 71.5 MG PO SCH (09:00)
[2021-10-04] MEDS ORDERED: Aspirin EC 81 mg TAB.EC (enteric coated) PO SCH (09:00)
[2021-10-04] MEDS ORDERED: Sulfamethox/Trimethoprim DS TAB 800/160 mg PO SCH (09:00)
[2021-10-04] MEDS: Enoxaparin 40 MG/0.4 ML SYR SUBCUT SCH (14:57)
[2021-10-04 16:14] VITALS: BP 125/57
== END 2021-10-04 16:22 | disposition home or self-care (01) ==
LOC: EDHOLD 10:02 → ED 10:02 → MEDTELE 16:56
PROVIDERS: ADMIT Internal Medicine; ATTEND Internal Medicine